=== PATIENT | male | born 1985 | race Caucasian/White ===

== ENCOUNTER 2017-12-29 17:07 | Emergency (ER) | payer BC ==
[~2017-12-29] VITALS: Ht 177.8 cm; Wt 102.1 kg
[2017-12-29] MEDS ORDERED: NAPROSYN500 MG PO (19:01)
== END 2017-12-29 19:05 | disposition home or self-care (01) ==
LOC: ED 17:07
DX: M77.8 Other enthesopathies, not elsewhere classified (principal); M25.531 Pain in right wrist

== ENCOUNTER → 2018-05-26 | Outpatient (CLI) | payer BC ==
[~2018-05-26] MED LIST: NAPROSYN500 MG PO
== END | disposition home or self-care (01) ==
LOC: ORTHO 02:17
DX: M25.531 Pain in right wrist (principal)